=== PATIENT | male | born 1980 | race Two or more races ===

== ENCOUNTER 2019-06-17 13:54 | Emergency (ER) | payer MEDICAID ==
[~2019-06-17] VITALS: Ht 172.7 cm; Wt 74.8 kg
[~2019-06-17 13:54] MED LIST: BACTRIM DS TAB1 EAC1 ORAL; ERYTHROMYCIN3.5 GM LEFT EYE; KEFLEX500 MG ORAL; OCUFLOX5 ML LEFT EYE
[2019-06-17 14:10] VITALS: BP 130/82
--- NOTE | 2019-06-17 14:10 | NUR ---
ED Nurse Note: pt walked in to ED due to LLQ abdomen for couple days aw nausea. pt denies vomiting or diarrheas. per pt, more painful when press down the site. AAO x4. respirations even and non-labored noted. lab sent. will wait for the further order.
[2019-06-17] MEDS ORDERED: Omnipaque-300 100ml vial INJ PRN (14:30)
[2019-06-17 14:35] LABS: APPEARANCE,URINE CLEAR; BASOPHILS % (AUTO) 0.9 % (0.0-2.0); BILIRUBIN, URINE NEGATIVE (NEGATIVE); EOSINOPHILS % (AUTO) 1.2 % (0.0-3.0); GLUCOSE, URINE (UA) NEGATIVE (NEGATIVE); HEMATOCRIT 39.7 % (42.0-52.0); HEMOGLOBIN 13.8 G/DL (14.2-18.0); KETONES,URINE NEGATIVE (NEGATIVE); LEUKOCYTE ESTERASE ,URINE NEGATIVE (NEGATIVE); MEAN CORPUSCULAR VOLUME 85 FL (80-99); MONOCYTES % (AUTO) 7.2 % (1.0-10.0); NEUTROPHILS % (AUTO) 67.8 % (45.0-75.0); NITRITE,URINE NEGATIVE (NEGATIVE); PH,URINE 5 (4.5-8.0); PLATELET COUNT 255 K/UL (150-450); PROTEIN,URINE NEGATIVE (NEGATIVE); RED BLOOD COUNT 4.66 M/UL (4.70-6.10); RED CELL DISTRIBUTION WIDTH 11.1 % (11.6-14.8); UROBILINOGEN,URINE NORMAL MG/DL (0.0-1.0); WHITE BLOOD COUNT 8.7 K/UL (4.8-10.8)
[2019-06-17 14:40] LABS: COLOR,URINE YELLOW
--- NOTE | 2019-06-17 14:47 | Emergency Room Report ---
History of Present Illness General Chief Complaint: Abdominal Pain Source: Patient Present Illness HPI 39-year-old male presents the ED for abdominal pain. Started a few days ago. Left-sided, dull, 8 out of 10, nonradiating. States he felt fevers and chills. Afebrile in triage. Denies nausea or vomiting. Denies diarrhea. Denies sick contacts or recent travel. Denies any runny nose cough or congestion. No other aggravating relieving factors. Denies any other associated symptoms Allergies: Coded Allergies: No Known Allergies (Unverified , 02/14/14) COVID-19 Screening Contact w/high risk pt: No Recent Travel to affected area: No Experienced COVID-19 symptoms?: No Patient History Past Medical History: none Past Surgical History: none Pertinent Family History: none Social History: Denies: smoking, alcohol use, drug use Immunizations: UTD Reviewed Nursing Documentation: PMH: Agreed; PSxH: Agreed Nursing Documentation-PMH Past Medical History: No Stated History Review of Systems All Other Systems: negative except mentioned in HPI Physical Exam Vital Signs Date Time Temp Pulse Resp B/P (MAP) Pulse Ox O2 Delivery O2 Flow Rate FiO2 06/17/19 13:58 98.1 79 17 130/82 (98) 98 Room Air Sp02 EP Interpretation: reviewed, normal General Appearance: no apparent distress, alert, GCS 15, non-toxic Head: normocephalic, atraumatic Eyes: bilateral eye normal inspection, bilateral eye PERRL ENT: hearing grossly normal, normal pharynx, no angioedema, normal voice Neck: full range of motion, supple/symm/no masses Respiratory: chest non-tender, lungs clear, normal breath sounds, speaking full sentences Cardiovascular #1: regular rate, rhythm, no edema Cardiovascular #2: 2+ carotid (R), 2+ carotid (L), 2+ radial (R), 2+ radial (L) , 2+ dorsalis pedis (R), 2+ dorsalis pedis (L) Gastrointestinal: normal bowel sounds, soft, non-distended, no guarding, no rebound, tenderness - LLQ Rectal: deferred Genitourinary: normal inspection, no CVA tenderness Musculoskeletal: back normal, normal range of motion, gait/station normal, non- tender Neurologic: alert, motor strength/tone normal, oriented x3, sensory intact, responsive, speech normal Psychiatric: judgement/insight normal, memory normal, mood/affect normal, no suicidal/homicidal ideation Reflexes: 3+ bicep (R), 3+ bicep (L), 3+ tricep (R), 3+ tricep (L), 3+ knee (R) , 3+ knee (L) Skin: no rash Lymphatic: no adenopathy Medical Decision Making Diagnostic Impression: Primary Impression: Diverticulitis ER Course Hospital Course 39-year-old M presents to ED with lower abdominal pain Differential diagnoses include: appendicitis, diverticulitis, SBO, gastroenteritis Clinical course 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 After initial history and physical I ordered labs, IV fluids, UA and CT scan . patient declined pain meds Labs - no leukocytosis, Hb/Hct stable. electrolytes ok. CT abdomen and pelvis - diverticulitis without perforation or abscess I discussed findings with patient. afebrile. labs unremarkable. I believe patient can be safely discharged to home. Patient agrees with plan. Patient already taking Cipro prescribed by his PMD. I encouraged him to continue the Cipro will add Flagyl. Given Flagyl in ED. Given copy of CT report. Safe for discharge for close outpatient follow-up I feel this is a highly complex case requiring extensive working including EKG/ Rhythm strip, Xray/CT/US, Blood/urine lab work, repeat exams while in ED, and administration of strong opiates/narcotics for pain control, admission to hospital or close patient follow up. Diagnosis - divertculitis stable and discharged to home with prescription for Motrin, [place] and Flagyl. continue Cipro as directed. Followup with PMD. Return to ED if symptoms recur or worsen Labs Test 06/17/19 14:15 White Blood Count 8.7 K/UL (4.8-10.8) Red Blood Count 4.66 M/UL (4.70-6.10) Hemoglobin 13.8 G/DL (14.2-18.0) Hematocrit 39.7 % (42.0-52.0) Mean Corpuscular Volume 85 FL (80-99) Mean Corpuscular Hemoglobin 29.6 PG (27.0-31.0) Mean Corpuscular Hemoglobin Concent 34.8 G/DL (32.0-36.0) Red Cell Distribution Width 11.1 % (11.6-14.8) Platelet Count 255 K/UL (150-450) Mean Platelet Volume 6.8 FL (6.5-10.1) Neutrophils (%) (Auto) 67.8 % (45.0-75.0) Lymphocytes (%) (Auto) 23.0 % (20.0-45.0) Monocytes (%) (Auto) 7.2 % (1.0-10.0) Eosinophils (%) (Auto) 1.2 % (0.0-3.0) Basophils (%) (Auto) 0.9 % (0.0-2.0) Urine Color Yellow Urine Appearance Clear Urine pH 5 (4.5-8.0) Urine Specific [place] 1.015 (1.005-1.035) Urine Protein Negative (NEGATIVE) Urine Glucose (UA) Negative (NEGATIVE) Urine Ketones Negative (NEGATIVE) Urine Blood Negative (NEGATIVE) Urine Nitrite Negative (NEGATIVE) Urine Bilirubin Negative (NEGATIVE) Urine Urobilinogen Normal MG/DL (0.0-1.0) Urine Leukocyte Esterase Negative (NEGATIVE) Sodium Level 136 MMOL/L (136-145) Potassium Level 4.0 MMOL/L (3.5-5.1) Chloride Level 99 MMOL/L (98-107) Carbon Dioxide Level 28 MMOL/L (21-32) Blood Urea Nitrogen 13 mg/dL (7-18) Creatinine 1.1 MG/DL (0.55-1.30) Estimat Glomerular Filtration Rate > 60 mL/min (>60) Glucose Level 92 MG/DL (74-106) Calcium Level 8.8 MG/DL (8.5-10.1) Total Bilirubin 0.7 MG/DL (0.2-1.0) Aspartate Amino Transf (AST/SGOT) 17 U/L (15-37) Alanine Aminotransferase (ALT/SGPT) 31 U/L (12-78) Alkaline Phosphatase 55 U/L (46-116) Total Protein 7.9 G/DL (6.4-8.2) Albumin 4.1 G/DL (3.4-5.0) Globulin 3.8 g/dL Albumin/Globulin Ratio 1.1 (1.0-2.7) Lipase 362 U/L (73-393) CT/MRI/US Diagnostic Results CT/MRI/US Diagnostic Results : Imaging Test Ordered: CT A/P Impression Procedure: CT Abdomen Pelvis w/Contrast History: ABD PAIN Exam: CT ABDOMEN + PELVIS With Contrast Technique more: CTDI is 5.10 mGy and DLP is 270.50 mGy-cm. Technique more: One or more of the following dose reduction techniques were used: automated exposure control, adjustment of the mA and/or kV according to patient size, use of iterative reconstruction technique. Comparison: None available FINDINGS: Acute descending sigmoid colon diverticulitis near the junction with the proximal sigmoid left lower quadrant for example coronal 22. No bowel dilation, free air or abscess. The lung bases are clear. Abdominal solid organs, contracted gallbladder and abdominal aorta appear within limits. Normal caliber retrocecal appendix without secondary signs. The bladder appears within limits. No free fluid. IMPRESSION: Acute descending sigmoid colon diverticulitis near the junction with the proximal sigmoid left lower quadrant for example coronal 22. No bowel dilation, free air or abscess. Last Vital Signs Date Time Temp Pulse Resp B/P (MAP) Pulse Ox O2 Delivery O2 Flow Rate FiO2 06/17/19 14:10 98.0 74 17 130/82 98 Room Air Status: improved Disposition: HOME, SELF-CARE Condition: Stable Scripts Hydrocodone Bit/Acetaminophen 5-325* (NORCO 5-325 TABLET*) 1 Each Tablet 1 TAB ORAL Q6H PRN for FOR PAIN, #10 TAB 0 Refills Prov: Brooks Fink MD 06/17/19 Ibuprofen* (MOTRIN*) 600 Mg Tablet 600 MG ORAL Q8H PRN for FOR PAIN, #30 TAB 0 Refills Prov: Brooks Fink MD 06/17/19 Metronidazole* (FLAGYL*) 500 Mg Tablet 500 MG ORAL THREE TIMES A DAY, #21 TAB Prov: Brooks Fink MD 06/17/19 Referrals: NON PHYSICIAN (PCP) Brooks Fink MD Jun 17, 2019 14:47
[2019-06-17 15:05] LABS: ALANINE AMINOTRANSFERASE 31 U/L (12-78); ALBUMIN 4.1 G/DL (3.4-5.0); ALBUMIN/GLOBULIN RATIO 1.1 (1.0-2.7); ALKALINE PHOSPHATASE 55 U/L (46-116); ASPARTATE AMINO TRANSFERASE 17 U/L (15-37); BILIRUBIN,TOTAL 0.7 MG/DL (0.2-1.0); BLOOD UREA NITROGEN 13 mg/dL (7-18); CALCIUM 8.8 MG/DL (8.5-10.1); CARBON DIOXIDE 28 MMOL/L (21-32); CHLORIDE 99 MMOL/L (98-107); CREATININE 1.1 MG/DL (0.55-1.30); SODIUM 136 MMOL/L (136-145)
--- NOTE | 2019-06-17 15:55 | NUR ---
ED Nurse Note: PT came back from CT. will wait for the result.
--- NOTE | 2019-06-17 16:09 | Diagnostic Imaging Report ---
History: ABD PAIN Exam: CT ABDOMEN + PELVIS With Contrast Technique more: CTDI is 5.10 mGy and DLP is 270.50 mGy-cm. Technique more: One or more of the following dose reduction techniques were used: automated exposure control, adjustment of the mA and/or kV according to patient size, use of iterative reconstruction technique. Comparison: None available FINDINGS: Acute descending sigmoid colon diverticulitis near the junction with the proximal sigmoid left lower quadrant for example coronal 22. No bowel dilation, free air or abscess. The lung bases are clear. Abdominal solid organs, contracted gallbladder and abdominal aorta appear within limits. Normal caliber retrocecal appendix without secondary signs. The bladder appears within limits. No free fluid. IMPRESSION: Acute descending sigmoid colon diverticulitis near the junction with the proximal sigmoid left lower quadrant for example coronal 22. No bowel dilation, free air or abscess.
[2019-06-17] MEDS ORDERED: METRONIDAZOLE500 MG ORAL (16:24)
[2019-06-17] MEDS ORDERED: IBUPROFEN600 M1 ORAL (16:24)
[2019-06-17] MEDS ORDERED: NORCO 5-325 TA1 EAC1 ORAL (16:24)
[2019-06-17] MEDS ORDERED: metroNIDAZOLE 500mg tab ORAL ONE (16:30)
[2019-06-17 16:34] VITALS: BP 127/70
--- NOTE | 2019-06-17 16:35 | NUR ---
ER DISCHARGE NOTE: Patient is cleared to be discharged per ERMD, pt is aox4, on room air, with stable vital signs. pt was given dc and prescription instructions, pt was able to verbalize understanding, pt id band and iv site removed without complications. pt is able to ambulate with steady gait. pt took all belongings.
== END 2019-06-17 16:35 | disposition home or self-care (01) ==
LOC: EMR 14:12
DX: K57.92 Diverticulitis of intestine, part unspecified, without perforation or abscess without bleeding (principal)
CPT/HCPCS: 36415; 74177; 80053; 81003; 83690; 85025; 96360; J7030; Q9967; Z7502; 99284

== ENCOUNTER 2019-08-28 09:22 | Emergency (ER) | payer MEDICAID ==
[~2019-08-28] VITALS: Ht 172.7 cm; Wt 74.8 kg
[~2019-08-28 09:22] MED LIST changes: +IBUPROFEN600 M1 ORAL; +METRONIDAZOLE500 MG ORAL; +NORCO 5-325 TA1 EAC1 ORAL
[2019-08-28 09:50] VITALS: BP 111/62
[2019-08-28] MEDS ORDERED: OCUFLOX5 ML BOTH EYES (09:56)
[2019-08-28 10:03] VITALS: BP 107/65
--- NOTE | 2019-08-28 10:30 | Emergency Room Report ---
History of Present Illness General Chief Complaint: Eye Problems Source: Patient Present Illness HPI 39-year-old male presents complaining of eye irritation. States that 10 days ago he went to [facility] and went in the water. States that since then he has been having discharge with eyes. States it is very thick. States that he has to wipe it off in the mornings. Denies any blurry vision. States that he has been taking some drops he found which he thinks are helping. Denies fevers or chills. No other aggravating relieving factors. Denies any other associated symptoms Allergies: Coded Allergies: No Known Allergies (Unverified , 02/14/14) COVID-19 Screening Contact w/high risk pt: No Recent Travel to affected area: No Experienced COVID-19 symptoms?: No COVID-19 Testing performed IT LEAD: Yes COVID-19 Screening: Negative COVID-19 COVID-19 Testing Source: Nasopharyngeal Patient History Past Medical History: none Past Surgical History: none Pertinent Family History: none Social History: Denies: smoking, alcohol use, drug use Immunizations: UTD Reviewed Nursing Documentation: PMH: Agreed; PSxH: Agreed Nursing Documentation-PMH Past Medical History: No Stated History Review of Systems All Other Systems: negative except mentioned in HPI Physical Exam Vital Signs Date Time Temp Pulse Resp B/P (MAP) Pulse Ox O2 Delivery O2 Flow Rate FiO2 08/28/19 09:35 98.2 56 14 104/58 (73) 99 Room Air Sp02 EP Interpretation: reviewed, normal General Appearance: no apparent distress, alert, GCS 15, non-toxic Head: normocephalic, atraumatic Eyes: bilateral eye PERRL, bilateral eye EOMI, bilateral eye visual acuity, bilateral eye Scleral Injection ENT: hearing grossly normal, normal pharynx, no angioedema, normal voice Neck: full range of motion, supple/symm/no masses Respiratory: chest non-tender, lungs clear, normal breath sounds, speaking full sentences Cardiovascular #1: regular rate, rhythm, no edema Cardiovascular #2: 2+ carotid (R), 2+ carotid (L), 2+ radial (R), 2+ radial (L) , 2+ dorsalis pedis (R), 2+ dorsalis pedis (L) Gastrointestinal: normal bowel sounds, non tender, soft, non-distended, no guarding, no rebound Rectal: deferred Genitourinary: normal inspection, no CVA tenderness Musculoskeletal: back normal, normal range of motion, gait/station normal, non- tender Neurologic: alert, motor strength/tone normal, oriented x3, sensory intact, responsive, speech normal Psychiatric: judgement/insight normal, memory normal, mood/affect normal, no suicidal/homicidal ideation Reflexes: 3+ bicep (R), 3+ bicep (L), 3+ tricep (R), 3+ tricep (L), 3+ knee (R) , 3+ knee (L) Skin: no rash Lymphatic: no adenopathy Medical Decision Making Diagnostic Impression: Primary Impression: Conjunctivitis Qualified Codes: H10.9 - Unspecified conjunctivitis ER Course Hospital Course 39-year-old M presents to ED with bilateral eye discharge Differential diagnoses include: conjunctivitis, traumatic iritis, foreign body, corneal abrasion Clinical course Patient placed on stretcher. After initial history, physical exam revealed a male no acute distress. There is injected conjunctiva and both eyes. Pupils equally reactive to light bilaterally. No evidence of foreign body. Patient showed me the drops he was using. Prednisolone. I explained that this will not provide significant benefit for his condition. He needs antibiotics. I will provide a prescription. Safe for discharge for close outpatient follow- up. I will provide Ortho referral Diagnosis - conjunctivitis Stable and discharged to home with prescription for Ocuflox. Followup with PMD/ Optho. Return to ED if symptoms recur or worsen Last Vital Signs Date Time Temp Pulse Resp B/P (MAP) Pulse Ox O2 Delivery O2 Flow Rate FiO2 08/28/19 10:03 98.0 79 16 107/65 98 Room Air Status: improved Disposition: HOME, SELF-CARE Condition: Stable Scripts Ofloxacin (OCUFLOX) 5 Ml Drops 1 DROP BOTH EYES QID for 7 Days, ML Prov: Brooks Fink MD 08/28/19 Referrals: Sascha Wood MD, Maziar M.D. MD Patient Instructions: Bacterial Conjunctivitis, [id number] Brooks Fink MD Aug 28, 2019 10:30
== END 2019-08-28 10:03 | disposition home or self-care (01) ==
LOC: EMR 09:54
DX: H10.9 Unspecified conjunctivitis (principal)
CPT/HCPCS: 99282

== ENCOUNTER 2020-05-29 18:18 | Emergency (ER) | payer MEDICAID ==
[~2020-05-29] VITALS: Ht 172.7 cm; Wt 74.8 kg
[~2020-05-29 18:18] MED LIST changes: +OCUFLOX5 ML BOTH EYES
[2020-05-29 18:59] VITALS: BP 137/75
[2020-05-29] MEDS: Fluorescein Strips RIGHT EYE ONE (19:25)
--- NOTE | 2020-05-29 19:27 | Emergency Room Report ---
History of Present Illness General Chief Complaint: Eye Problems Source: Patient Present Illness HPI 39-year-old male with no signal past medical history here complaining of right eye irritation x2 days per patient report that he flew back from [place] and started after he got off of the airplane. Denies any pain. Complains of yellow discharge. Denies any vision changes. Has been in contact lenses or glasses. Has not taken medication for symptom relief he reports that he gets that quite often and he usually improves with antibiotic drops. Patient used his dad's old antibiotic drops however did not help him. Denies any photophobia. 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 Patient History Past Medical History: see triage record Past Surgical History: none Pertinent Family History: none Immunizations: UTD Reviewed Nursing Documentation: PMH: Agreed; PSxH: Agreed Nursing Documentation-PMH Past Medical History: No History, Except For Hx Hypertension: Yes Review of Systems All Other Systems: negative except mentioned in HPI Physical Exam Vital Signs Date Time Temp Pulse Resp B/P (MAP) Pulse Ox O2 Delivery O2 Flow Rate FiO2 05/29/20 18:55 98.6 74 18 137/75 (95) 98 Sp02 EP Interpretation: reviewed, normal General Appearance: no apparent distress, alert, GCS 15, non-toxic Head: normocephalic, atraumatic Eyes: right eye other - Bacterial conjunctivitis, no corneal abrasion noted; bilateral eye PERRL ENT: hearing grossly normal, normal pharynx, no angioedema, normal voice Neck: full range of motion, supple/symm/no masses Respiratory: no retraction Cardiovascular #1: regular rate, rhythm Gastrointestinal: soft Musculoskeletal: back normal, gait/station normal Neurologic: alert, motor strength/tone normal, oriented x3, sensory intact, responsive, speech normal Psychiatric: judgement/insight normal, memory normal, mood/affect normal, no suicidal/homicidal ideation Skin: no rash Lymphatic: no adenopathy Medical Decision Making PA Attestation All diagnoses and treatment plans were reviewed and discussed with my supervising physician Dr. Peterson Diagnostic Impression: Primary Impression: Bacterial conjunctivitis ER Course 39-year-old male with no signal past medical history here complaining of right eye irritation x2 days per patient report that he flew back from [place] and started after he got off of the airplane. Denies any pain. Complains of yellow discharge. Denies any vision changes. Has been in contact lenses or glasses. Has not taken medication for symptom relief he reports that he gets that quite often and he usually improves with antibiotic drops. Patient used his dad's old antibiotic drops however did not help him. Denies any photophobia. Ddx considered but are not limited to: bacterial conjunctivitis, allergic co njunctivitis, viral conjunctivitis, periorbital cellulitis, global trauma Vital signs: are WNL, pt. is afebrile H&PE are most consistent with: Bacterial conjunctivitis ORDERS: Ofloxacin ophthalmic ED INTERVENTIONS: None required at this time. DISCHARGE: At this time pt. is stable for d/c to home. Will provide printed patient care instructions, and any necessary prescriptions. Care plan and follow up instructions have been discussed with the patient prior to discharge. 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 setter, if worsening symptoms into the emergency room Last Vital Signs Date Time Temp Pulse Resp B/P (MAP) Pulse Ox O2 Delivery O2 Flow Rate FiO2 05/29/20 18:59 98.6 18 137/75 98 05/29/20 18:55 74 Disposition: HOME, SELF-CARE Condition: Stable Scripts Ofloxacin (Ofloxacin) 5 Ml Drops 2 DROP OP Q6HR for 7 Days, #5 ML Prov: Don Hopson 05/29/20 Patient Instructions: Bacterial Conjunctivitis, [id number] Additional Instructions: Take medication as directed, change her pillowcase, avoid cross-contamination, protective sunglasses, if worsening symptoms return to the emergency room Don Hopson May 29, 2020 19:27
[2020-05-29] MEDS ORDERED: OFLOXACIN10 ML OP (19:28)
[2020-05-29 19:30] VITALS: BP 132/72
--- NOTE | 2020-05-29 19:30 | NUR ---
ER DISCHARGE NOTE: Patient is cleared to be discharged per ERMD, pt is aox4, on room air, with stable vital signs. pt was given dc and prescription instructions, pt was able to verbalize understanding, pt id band removed without complications. pt is able to ambulate with steady gait. pt took all belongings.
== END 2020-05-29 19:30 | disposition home or self-care (01) ==
LOC: EMR 19:12
DX: H10.89 Other conjunctivitis (principal); I10 Essential (primary) hypertension
CPT/HCPCS: 99282